=== PATIENT | male | born 1945 | race Caucasian/White ===

== ENCOUNTER → 2021-05-24 | Outpatient (CLI) | payer MEDICARE, BC ==
[~2021-05-24] MED LIST: ACETAMINOPHEN W1 TA6 PO; AMITRIPTYLINE H75 M1 PO; AMITRIPTYLINE75 MG PO; AMLODIPINE BES2.5 MG PO; ASPIRIN 32325 MG/TAB PO; ASPIRIN E.C. 8181 MG PO; AXID AR75 MG PO; BENADRYL; BENADRYL25 M2 PO; CITALOPRAM HYDR20 MG PO; CYCLOBENZAPRINE10 M1 PO; EC NAPROSYN500 MG PO; EC-NAPROSYN500 MG PO; FERROUS SU325 MG/TAB PO; FIBER CHOICE1 CTB PO; FIBERCON PO; FLEXERIL 1010 MG/TAB PO; FOLIC ACID 40400 MCG PO; HCTZ 25MG TAB25 MG PO; HCTZ 25MG25 MG PO; INTRATHECAL PUMP; LIORESAL 1010 MG/TAB PO; MULTIPLE VITAMI1 CAP PO; NEURONTIN300 MG PO; NEURONTIN300 MG/CAP PO; NIASPAN750 MG PO; NORCO 325 MG-7.1 TAB PO; NORVASC 5MG5 MG/TAB PO; PERCOCET 325 MG1 TA2 PO; PRAVACHOL80 MG PO; PRILOSEC 20MG20 MG PO; PROAIR HFA0.09 MG/AC IH; SEE INSTRUCTIONS IT; SIMVASTATIN40 MG PO; ULTRAM 50MG TAB50 MG PO; VANCOCIN HCL1 GM IV; VITAMIN C500 MG PO; ZOLOFT 100MG100 MG PO
== END ==
LOC: COL.RAD 10:44
DX: M47.816 Spondylosis without myelopathy or radiculopathy, lumbar region (principal); M48.061 Spinal stenosis, lumbar region without neurogenic claudication; M48.07 Spinal stenosis, lumbosacral region; R26.81 Unsteadiness on feet